=== PATIENT | female | born 1985 | race Caucasian/White ===

== ENCOUNTER 2016-09-24 17:31 | Emergency (ER) | payer OTHER ==
[~2016-09-24] VITALS: Ht 172.7 cm; Wt 82.8 kg
[~2016-09-24 17:31] MED LIST: CELEXA40 MG PO; JOLESSA1 EACH PO; LAMICTAL200 MG PO; LITHIUM CARBON300 M1 PO; SEASONALE,JO1 TABLET PO; SEROQUEL50 MG PO; VENLAFAXINE HC150 M1 PO
[2016-09-24] MEDS ORDERED: MOTRIN600 MG PO (19:47)
[2016-09-24 20:11] VITALS: BP 128/71
== END 2016-09-24 20:12 | disposition home or self-care (01) ==
LOC: EME 17:31
DX: S80.01XA Contusion of right knee, initial encounter (principal); W23.0XXA Caught, crushed, jammed, or pinched between moving objects, initial encounter
CPT/HCPCS: 73564; 99281; 99284

== ENCOUNTER 2016-11-11 09:59 | Emergency (ER) | payer OTHER ==
[~2016-11-11] VITALS: Ht 172.7 cm; Wt 83.8 kg
[~2016-11-11 09:59] MED LIST changes: +MOTRIN600 MG PO
[2016-11-11] MEDS ORDERED: PREVACID15 MG PO (10:21)
[2016-11-11] MEDS ORDERED: CLARITIN10 M3 PO (10:21)
[2016-11-11 10:49] LABS: HEMATOCRIT 38.6 % (36.0-46.0); MCH 32.6 PG (29.0-34.0); MCHC 32.9 G/DL (30.0-36.0); MCV 99.2 FL (83-99); MEAN PLAT.VOLUME 11.3 uM^3 (9.5-12.4); PLATELET COUNT 294 K/uL (156-360); RBC DIS.WIDTH-CV 12.8 % (11.8-14.6); RBC DIS.WIDTH-SD 47.2 % (39-53); RED BLOOD COUNT 3.89 M/uL (3.80-5.20); WHITE BLOOD COUNT 5.6 K/uL (4.1-10.2)
[2016-11-11 11:04] LABS: CHLORIDE 109 mEq/L (99-109); POTASSIUM 4.4 mEq/L (3.7-5.4); SODIUM 139 mEq/L (136-147)
[2016-11-11 11:06] LABS: GLUCOSE 103 mg/dL (70-99)
[2016-11-11 11:07] LABS: ANION GAP 9 MEQ/L (2-14)
[2016-11-11 11:09] LABS: SERUM ETHYL ALCOHOL < 10 mg/dL
[2016-11-11 11:10] LABS: GFR ESTIMATE (CALCULATED) > 59 mL/min/
[2016-11-11 11:11] LABS: UREA NITROGEN (BUN) 10 mg/dL (9-23)
[2016-11-11 11:22] LABS: QUANTITATIVE HCG < 4.0 MIU/ML
[2016-11-11 12:44] LABS: AMPHETAMINE NEGATIVE (500 ng/mL); BARBITURATES NEGATIVE (200 ng/mL); BENZODIAZEPINES NEGATIVE (150 ng/mL); COCAINE NEGATIVE (150 ng/mL); INTERNAL CONTROLS VALID? YES; METHADONE NEGATIVE (200 ng/mL); METHAMPHETAMINE NEGATIVE (500 ng/mL); OPIATES (MORPHINE) NEGATIVE (100 ng/mL); OXYCODONE NEGATIVE (100 ng/mL); PHENCYCLIDINE NEGATIVE (25 ng/mL); PROPOXYPHENE NEGATIVE (300 ng/mL); THC CANNABINOIDS NEGATIVE (50 ng/mL); TRICYCLIC ANTIDEPRESSANTS PRESUMPTIVE POSITIVE (300 ng/mL)
[2016-11-12 07:09] VITALS: BP 107/64
== END 2016-11-12 07:12 ==
LOC: EME 09:59
DX: F41.9 Anxiety disorder, unspecified (principal); F32.9 Major depressive disorder, single episode, unspecified; R45.851 Suicidal ideations
CPT/HCPCS: 80048; 80178; 84702; 85027; 90837; 99281; 99284; G0480